=== PATIENT | female | born 1995 ===

== ENCOUNTER 2021-11-08 14:08 | Emergency (ER) | payer SELFPAY ==
[2021-11-08] MEDS ORDERED: ZIPRASIDONE MESYLATE 20 MG VIAL IM ONE (14:56)
[2021-11-08] MEDS ORDERED: LORazepam 2 MG/ML VIAL IM ONE (14:56)
--- NOTE | 2021-11-08 15:43 | Emergency Department Report ---
ED Psych HPI - General Chief Complaint: Psych Stated Complaint: MENTAL health evaluation Time Seen by Provider: 11/08/21 14:28 Source: patient Mode of arrival: Ambulatory Limitations: No Limitations - History of Present Illness Initial Comments: 26-year-old female with a past medical history of major depressive disorder (recently diagnosed) presents to the hospital not speaking, eating, and overly anxious. History obtained from mother who is accompanied patient to the hospital patient was recently medically cleared at [facility] [place] and subsequently transferred to [facility] for psychiatric admission. 2 days ago patient was admitted to [facility]. Yesterday patient threw herself on the floor and was acting hysterical. Today patient is hyperventilating, not eating, and not speaking. She was advised to bring patient back to the ER for treatment. Mother does not know patient's current medications but thinks she was started on Abilify. Covid status unknown and patient was homeless prior to psychiatric admission. - Related Data Allergies Allergy/AdvReac Type Severity Reaction Status Date / Time No Known Allergies Allergy Verified 11/08/21 14:17 ED Review of Systems ROS: Stated complaint: MENTAL health evaluation Other details as noted in HPI Comment: Unobtainable due to pts medical conditions ED Past Medical Hx - Past Medical History Previous Medical History?: Yes Hx Psychiatric Treatment: Yes - Surgical History Past Surgical History?: No ED Physical Exam - General Limitations: No Limitations - Other Other exam information: General: No acute distress Head: Atraumatic Eyes: normal appearance ENT: Moist mucous membranes Neck: Normal appearance, no midline tenderness Chest: Mild tachycardia CV: Regular rate and rhythm Abdomen: Soft, normal bowel sounds, nontender, nondistended, no rebound or guarding Back: Normal inspection Extremity: Normal inspection, full range of motion Neuro: Alert O x 3, no facial asymmetry, speech clear, no gross motor sensory deficit Psych: Appropriate behavior Skin: No rash ED Course Vital Signs 11/08/21 11/08/21 11/08/21 14:17 20:14 20:21 Temperature 98 F 98.2 F Pulse Rate 100 H 79 Respiratory 16 15 Rate Blood Pressure 143/86 131/70 [Left] O2 Sat by Pulse 100 100 100 Oximetry - Reevaluation(s) Reevaluation #1: 11/08/21 17:07 Patient reassessed after receiving IM Ativan and Geodon. She is still not speaking, sitting with her arms crossed, does make eye contact. She is no longer hyperventilating - Consultations Consultation #1: 11/08/21 17:07 Case discussed with Annia mental health provider who will attempt to reach out and go to obtain additional information ED Medical Decision Making - Lab Data Result diagrams: 11/08/21 15:41 11/08/21 15:41 Lab Results 11/08/21 11/08/21 11/08/21 Range/Units 15:41 15:41 15:41 WBC 3.3 L (4.5-11.0) K/mm3 RBC 3.97 (3.65-5.03) M/mm3 Hgb 11.4 (10.1-14.3) gm/dl Hct 35.1 (30.3-42.9) % MCV 89 (79-97) fl MCH 29 (28-32) pg MCHC 32 (30-34) % RDW 13.7 (13.2-15.2) % Plt Count 243 (140-440) K/mm3 Lymph % (Auto) 38.3 H (13.4-35.0) % [place] % (Auto) 11.8 H (0.0-7.3) % Eos % (Auto) 0.1 (0.0-4.3) % Baso % (Auto) 0.7 (0.0-1.8) % Lymph # (Auto) 1.3 (1.2-5.4) K/mm3 [place] # (Auto) 0.4 (0.0-0.8) K/mm3 Eos # (Auto) 0.0 (0.0-0.4) K/mm3 Baso # (Auto) 0.0 (0.0-0.1) K/mm3 Seg Neutrophils % 49.1 (40.0-70.0) % Seg Neutrophils # 1.6 L (1.8-7.7) K/mm3 Sodium 137 (137-145) mmol/L Potassium 4.0 (3.6-5.0) mmol/L Chloride 102.4 (98-107) mmol/L Carbon Dioxide 18 L (22-30) mmol/L Anion Gap 21 mmol/L BUN 7 (7-17) mg/dL Creatinine 0.7 (0.6-1.2) mg/dL Estimated GFR > 60 ml/min BUN/Creatinine Ratio 10 % Glucose 72 (65-100) mg/dL Calcium 8.9 (8.4-10.2) mg/dL Urine Color (Yellow) Urine Turbidity (Clear) Urine pH (5.0-7.0) Ur Specific [place] (1.003-1.030) Urine Protein (Negative) mg/dL Urine Glucose (UA) (Negative) mg/dL Urine Ketones (Negative) mg/dL Urine Blood (Negative) Urine Nitrite (Negative) Urine Bilirubin (Negative) Urine Urobilinogen (<2.0) mg/dL Ur Leukocyte Esterase (Negative) Urine WBC (Auto) (0.0-6.0) /HPF Urine RBC (Auto) (0.0-6.0) /HPF U Epithel Cells (Auto) (0-13.0) /HPF Urine Bacteria (Auto) (Negative) /HPF Urine Mucus /HPF Salicylates < 0.3 L (2.8-20.0) mg/dL Urine Opiates Screen Urine Methadone Screen Acetaminophen (10.0-30.0) ug/mL Ur Barbiturates Screen Ur Phencyclidine Scrn Ur Amphetamines Screen U Benzodiazepines Scrn Urine Cocaine Screen U Marijuana (THC) Screen Drugs of Abuse Note Plasma/Serum Alcohol (0-0.07) % 11/08/21 11/08/21 11/08/21 Range/Units 15:41 15:41 Unknown WBC (4.5-11.0) K/mm3 RBC (3.65-5.03) M/mm3 Hgb (10.1-14.3) gm/dl Hct (30.3-42.9) % MCV (79-97) fl MCH (28-32) pg MCHC (30-34) % RDW (13.2-15.2) % Plt Count (140-440) K/mm3 Lymph % (Auto) (13.4-35.0) % [place] % (Auto) (0.0-7.3) % Eos % (Auto) (0.0-4.3) % Baso % (Auto) (0.0-1.8) % Lymph # (Auto) (1.2-5.4) K/mm3 [place] # (Auto) (0.0-0.8) K/mm3 Eos # (Auto) (0.0-0.4) K/mm3 Baso # (Auto) (0.0-0.1) K/mm3 Seg Neutrophils % (40.0-70.0) % Seg Neutrophils # (1.8-7.7) K/mm3 Sodium (137-145) mmol/L Potassium (3.6-5.0) mmol/L Chloride (98-107) mmol/L Carbon Dioxide (22-30) mmol/L Anion Gap mmol/L BUN (7-17) mg/dL Creatinine (0.6-1.2) mg/dL Estimated GFR ml/min BUN/Creatinine Ratio % Glucose (65-100) mg/dL Calcium (8.4-10.2) mg/dL Urine Color Yellow (Yellow) Urine Turbidity Slightly-cloudy (Clear) Urine pH 5.0 (5.0-7.0) Ur Specific [place] 1.027 (1.003-1.030) Urine Protein 30 mg/dl (Negative) mg/dL Urine Glucose (UA) Neg (Negative) mg/dL Urine Ketones 80 (Negative) mg/dL Urine Blood Neg (Negative) Urine Nitrite Neg (Negative) Urine Bilirubin Neg (Negative) Urine Urobilinogen < 2.0 (<2.0) mg/dL Ur Leukocyte Esterase Sm (Negative) Urine WBC (Auto) 20.0 H (0.0-6.0) /HPF Urine RBC (Auto) 4.0 (0.0-6.0) /HPF U Epithel Cells (Auto) 9.0 (0-13.0) /HPF Urine Bacteria (Auto) 1+ (Negative) /HPF Urine Mucus 1+ /HPF Salicylates (2.8-20.0) mg/dL Urine Opiates Screen Urine Methadone Screen Acetaminophen 5.0 L (10.0-30.0) ug/mL Ur Barbiturates Screen Ur Phencyclidine Scrn Ur Amphetamines Screen U Benzodiazepines Scrn Urine Cocaine Screen U Marijuana (THC) Screen Drugs of Abuse Note Plasma/Serum Alcohol < 0.01 (0-0.07) % 11/08/21 Range/Units Unknown WBC (4.5-11.0) K/mm3 RBC (3.65-5.03) M/mm3 Hgb (10.1-14.3) gm/dl Hct (30.3-42.9) % MCV (79-97) fl MCH (28-32) pg MCHC (30-34) % RDW (13.2-15.2) % Plt Count (140-440) K/mm3 Lymph % (Auto) (13.4-35.0) % [place] % (Auto) (0.0-7.3) % Eos % (Auto) (0.0-4.3) % Baso % (Auto) (0.0-1.8) % Lymph # (Auto) (1.2-5.4) K/mm3 [place] # (Auto) (0.0-0.8) K/mm3 Eos # (Auto) (0.0-0.4) K/mm3 Baso # (Auto) (0.0-0.1) K/mm3 Seg Neutrophils % (40.0-70.0) % Seg Neutrophils # (1.8-7.7) K/mm3 Sodium (137-145) mmol/L Potassium (3.6-5.0) mmol/L Chloride (98-107) mmol/L Carbon Dioxide (22-30) mmol/L Anion Gap mmol/L BUN (7-17) mg/dL Creatinine (0.6-1.2) mg/dL Estimated GFR ml/min BUN/Creatinine Ratio % Glucose (65-100) mg/dL Calcium (8.4-10.2) mg/dL Urine Color (Yellow) Urine Turbidity (Clear) Urine pH (5.0-7.0) Ur Specific [place] (1.003-1.030) Urine Protein (Negative) mg/dL Urine Glucose (UA) (Negative) mg/dL Urine Ketones (Negative) mg/dL Urine Blood (Negative) Urine Nitrite (Negative) Urine Bilirubin (Negative) Urine Urobilinogen (<2.0) mg/dL Ur Leukocyte Esterase (Negative) Urine WBC (Auto) (0.0-6.0) /HPF Urine RBC (Auto) (0.0-6.0) /HPF U Epithel Cells (Auto) (0-13.0) /HPF Urine Bacteria (Auto) (Negative) /HPF Urine Mucus /HPF Salicylates (2.8-20.0) mg/dL Urine Opiates Screen Negative Urine Methadone Screen Negative Acetaminophen (10.0-30.0) ug/mL Ur Barbiturates Screen Negative Ur Phencyclidine Scrn Negative Ur Amphetamines Screen Negative U Benzodiazepines Scrn Negative Urine Cocaine Screen Negative U Marijuana (THC) Screen Negative Drugs of Abuse Note Disclamer Plasma/Serum Alcohol (0-0.07) % - Medical Decision Making 26-year-old female presents to the hospital not speaking, eating, and appears overly anxious. Medicated with Geodon and Ativan and seemed to calm down and speaking intermittently. Patient is a 1013. Symptoms started apparently after experiencing relationship and family trauma. Patient is medically cleared for psychiatric admission and currently pending placement. She was started on Macrobid for UTI Critical Care Time: No Critical care attestation.: If time is entered above; I have spent that time in minutes in the direct care of this critically ill patient, excluding procedure time. ED Disposition Clinical Impression: Medical clearance for psychiatric admission, Catatonia, UTI (urinary tract infection) Disposition: [address] [place] [address] Is pt being admited?: No Condition: Stable Time of Disposition: 20:39
[2021-11-08 16:12] LABS: Basophils % (Auto) 0.7 % (0.0-1.8); Eosinophils % (Auto) 0.1 % (0.0-4.3); Hematocrit 35.1 % (30.3-42.9); Hemoglobin 11.4 gm/dl (10.1-14.3); Lymphocytes # (Auto) 1.3 K/mm3 (1.2-5.4); Lymphocytes % (Auto) 38.3 % (13.4-35.0); Mean Corpuscular HGB Conc 32 % (30-34); Mean Corpuscular Volume 89 fl (79-97); Monocytes # (Auto) 0.4 K/mm3 (0.0-0.8); Monocytes % (Auto) 11.8 % (0.0-7.3); Platelet Count 243 K/mm3 (140-440); Red Blood Count 3.97 M/mm3 (3.65-5.03); Red Cell Distribution Width 13.7 % (13.2-15.2)
[2021-11-08 16:19] LABS: Blood Urea Nitrogen 7 mg/dL (7-17); Calcium 8.9 mg/dL (8.4-10.2); Hemolysis Index 13
[2021-11-08 16:21] LABS: BUN/Creatinine Ratio 10
[2021-11-08 18:20] LABS: Bacteria,Urine 1+ /HPF (Negative); Bilirubin,Urine NEG (Negative); Blood,Urine NEG (Negative); Color,Urine Yellow (Yellow); Mucus,Urine 1+ /HPF; Urobilinogen,Urine < 2.0 mg/dL (<2.0)
[2021-11-08 18:24] LABS: Amphetamine Screen,Urine Negative; Benzodiazepines Screen,Urine Negative; Cannabinoid Screen,Urine Negative; Cocaine Screen,Urine Negative; Methadone Screen,Urine Negative; Opiate Screen,Urine Negative
[2021-11-08] MEDS: NITROFURANTOIN MONOHYD/M-CRYST 100 MG CAP PO SCH (21:55)
[2021-11-09] MEDS ORDERED: LORazepam 2 MG/ML VIAL IM STA (09:02)
--- NOTE | 2021-11-09 09:03 | Event Note ---
I was asked by charge nurse to evaluate patient. She pointed to her backside when asked if uncomfortable. Patient is wandering around the halls but appears she will make eye contact. She only answers limited questions. She is not appear to be in distress. I have ordered IM lorazepam for chemical restraint.
--- NOTE | 2021-11-09 10:09 | Consultation ---
History of Present Illness - Reason for Consult Consult date: 11/09/21 Reason for consult: psychosis - History of Present Psychiatric Illness The patient was seen today. Her face is tense. She appears very anxious. Her movement is catatonic. She is barely walking, not speaking and slow to respond when she does. She is crying and can't express herself. I could not engage the patient in the evaluation. REVIEW OF SYSTEMS Unable to assess MENTAL STATUS EXAMINATION Unable to assess Assessment (1) Psychosis Treatment Plan 1013 Lorazepam 0.5mg po BID x 3 days Remeron 7.5mg po qhs Disposition: Recommend acute psychiatric inpatient treatment Will follow. Thanks Case staffed with Dr. Marcano Medications and Allergies Allergies Allergy/AdvReac Type Severity Reaction Status Date / Time No Known Allergies Allergy Verified 11/08/21 14:17 Active Meds: Active Medications Nitrofurantoin Macrocrystals (Nitrofurantoin Monohyd/M-Cryst 100 Mg Cap) 100 mg PO BID LATANYA Stop: 11/13/21 10:01 Last Admin: 11/08/21 21:55 Dose: 100 mg Documented by: Mental Status Exam - Vital signs Last Vital Signs Temp 98.2 F 11/08/21 20:14 Pulse 88 11/09/21 07:00 Resp 18 11/09/21 07:00 BP 109/68 11/09/21 07:00 Pulse Ox 100 11/09/21 07:00 Results Result Diagrams: 11/08/21 15:41 11/08/21 15:41 Abnormal lab results 11/08/21 11/08/21 11/08/21 Range/Units 15:41 15:41 15:41 WBC 3.3 L (4.5-11.0) K/mm3 Lymph % (Auto) 38.3 H (13.4-35.0) % [place] % (Auto) 11.8 H (0.0-7.3) % Seg Neutrophils # 1.6 L (1.8-7.7) K/mm3 Carbon Dioxide 18 L (22-30) mmol/L Urine WBC (Auto) (0.0-6.0) /HPF Salicylates < 0.3 L (2.8-20.0) mg/dL Acetaminophen (10.0-30.0) ug/mL 01/01/22 01/01/22 Range/Units 15:41 Unknown WBC (4.5-11.0) K/mm3 Lymph % (Auto) (13.4-35.0) % [place] % (Auto) (0.0-7.3) % Seg Neutrophils # (1.8-7.7) K/mm3 Carbon Dioxide (22-30) mmol/L Urine WBC (Auto) 20.0 H (0.0-6.0) /HPF Salicylates (2.8-20.0) mg/dL Acetaminophen 5.0 L (10.0-30.0) ug/mL All other labs normal.
[2021-11-09] MEDS ORDERED: ZIPRASIDONE MESYLATE 20 MG VIAL IM ONE (10:46)
[2021-11-09] MEDS: NITROFURANTOIN MONOHYD/M-CRYST 100 MG CAP PO SCH ×2 (11:00→22:15)
--- NOTE | 2021-11-09 11:21 | Emergency Department Report ---
Blank Doc - Documentation Documentation: Patient is 26 years old female admitted to the ER for major depressive disorder with psychotic episode. Patient still refusing to talk. Vital signs stable. Labs reviewed and showed UTI for which patient received Macrobid. Waiting for inpatient psychiatric admission.
[2021-11-09] MEDS: LORazepam 0.5 MG TAB PO SCH (22:14)
[2021-11-09] MEDS: MIRTAZAPINE 15 MG TAB PO SCH (22:15)
[2021-11-10] MEDS ORDERED: IBUPROFEN 600 MG TAB PO ONE (09:45)
[2021-11-10] MEDS: NITROFURANTOIN MONOHYD/M-CRYST 100 MG CAP PO SCH ×2 (09:55→22:00)
[2021-11-10] MEDS: LORazepam 0.5 MG TAB PO SCH ×2 (09:55→22:00)
--- NOTE | 2021-11-10 10:19 | XRay Report ---
XR pelvis 1-2V INDICATION: left hip pain after fall. COMPARISON: No relevant prior imaging study available. FINDINGS: No acute skeletal abnormality. No significant soft tissue abnormality. IMPRESSION: 1. No acute findings. Signer Name: Mariano Wyatt MD Signed: 11/10/2021 10:15 AM Workstation Name: [id number] Document [id number]
--- NOTE | 2021-11-10 11:10 | Progress Note ---
Subjective - Reason for Consult Consult date: 11/10/21 Reason for consult: psychosis, catatonia - Chief Complaint Chief complaint: The patient is not speaking. She is moving her mouth as if she's trying to talk but nothing is coming out. She appears to be responding to internal stimuli. She starting at me with her face tense. REVIEW OF SYSTEMS Unable to assess MENTAL STATUS EXAMINATION Unable to assess Assessment (1) Psychosis Treatment Plan 1013 Lorazepam 0.5mg po BID x 3 days Remeron 7.5mg po qhs Start Haldol 0.5mg po BID Disposition: Recommend acute psychiatric inpatient treatment Will follow. Thanks Case staffed with Dr. Marcano Mental Status Exam - Vital signs Last Vital Signs Temp 98.2 F 11/10/21 07:52 Pulse 83 11/10/21 07:52 Resp 18 11/10/21 07:52 BP 122/78 11/10/21 07:52 Pulse Ox 99 11/10/21 07:52
--- NOTE | 2021-11-10 11:32 | Emergency Department Report ---
Blank Doc - Documentation Documentation: 26-year-old currently on 1013 for disorganized thought and catatonia. Patient apparently complaining of left hip pain earlier today. There are no reports of fall during ED stay. Pt had a pelvis x-ray which was unremarkable. Patient currently Macrobid for UTI. Upon chart review patient did not have a test. HCG serum ordered to confirm status. Pt is covid postitive. Tolerating oral meds. awaiting placement
[2021-11-10] MEDS: HALOPERIDOL 1 MG TAB PO SCH ×2 (12:00→22:00)
[2021-11-10] MEDS: MIRTAZAPINE 15 MG TAB PO SCH (22:00)
[2021-11-11] MEDS: HALOPERIDOL 1 MG TAB PO SCH (10:00)
[2021-11-11] MEDS: LORazepam 0.5 MG TAB PO SCH (10:00)
[2021-11-11] MEDS: NITROFURANTOIN MONOHYD/M-CRYST 100 MG CAP PO SCH ×2 (10:00→21:48)
--- NOTE | 2021-11-11 11:34 | Emergency Department Report ---
Blank Doc - Documentation Documentation: Patient is still not at baseline. She is fixated on water. She will interact to some extent. She is walking about the room. We are still waiting psychiatric admission. We will continue to await psychiatric disposition.
--- NOTE | 2021-11-11 12:40 | Progress Note ---
Subjective - Reason for Consult Consult date: 11/11/21 Reason for consult: psychosis - Chief Complaint Chief complaint: The patient was seen today. She is still suffering from acute psychosis. She is paranoid, and refusing to drink a cup of water that is given to her. She is pointing at the ice in the water and staring at it suspiciously. She is whispering and is incomprehensible. REVIEW OF SYSTEMS Unable to assess MENTAL STATUS EXAMINATION Unable to assess Assessment (1) Psychosis Treatment Plan 1013 Increase Lorazepam 1mg po BID x 3 days Remeron 7.5mg po qhs Increase Haldol 1mg po BID Disposition: Recommend acute psychiatric inpatient treatment Will follow. Thanks Case staffed with Dr. Marcano Mental Status Exam - Vital signs Last Vital Signs Temp 98.2 F 11/11/21 04:02 Pulse 68 11/11/21 04:02 Resp 16 11/11/21 04:02 BP 95/57 11/11/21 04:02 Pulse Ox 100 11/11/21 04:02
[2021-11-11] MEDS: LORazepam 1 MG TAB PO SCH (21:48)
[2021-11-11] MEDS: MIRTAZAPINE 15 MG TAB PO SCH (21:49)
[2021-11-11] MEDS ORDERED: HALOPERIDOL 1 MG TAB PO SCH (22:00)
--- NOTE | 2021-11-12 10:32 | Progress Note ---
Subjective - Reason for Consult Consult date: 11/12/21 Reason for consult: psychosis - Chief Complaint Chief complaint: The patient was seen today. She is positive for COVID. She is is whispering and is incomprehensible. She says "I can't talk" when asking her why she was talking so low. REVIEW OF SYSTEMS Unable to assess MENTAL STATUS EXAMINATION Unable to assess Assessment (1) Psychosis Treatment Plan 1013 Lorazepam 1mg po BID x 3 days Increase Remeron 15mg po qhs Increase Haldol 2mg po BID Disposition: Recommend acute psychiatric inpatient treatment Will follow. Thanks Case staffed with Dr. Marcano Mental Status Exam - Vital signs Last Vital Signs Temp 97.5 F L 11/12/21 01:51 Pulse 76 11/12/21 01:51 Resp 16 11/12/21 01:51 BP 107/72 11/12/21 01:51 Pulse Ox 100 11/12/21 01:51
[2021-11-12] MEDS: LORazepam 1 MG TAB PO SCH (10:51)
[2021-11-12] MEDS: NITROFURANTOIN MONOHYD/M-CRYST 100 MG CAP PO SCH (10:51)
[2021-11-12] MEDS ORDERED: HALOPERIDOL 2 MG TAB PO SCH (22:00)
--- NOTE | 2021-11-13 09:46 | Progress Note ---
Subjective - Reason for Consult Consult date: 11/13/21 Reason for consult: psychosis - Chief Complaint Chief complaint: The patient was seen today. She is still whispering and staring. She is an inaudible tone most of the time. She says "I'm doing okay." That is all I could make out. She then starts staring at me strangely. REVIEW OF SYSTEMS Unable to assess MENTAL STATUS EXAMINATION Unable to assess Assessment (1) Psychosis Treatment Plan 1013 Lorazepam 1mg po BID x 3 days Remeron 15mg po qhs Increase Haldol 5mg po BID Disposition: Recommend acute psychiatric inpatient treatment Will follow. Thanks Case staffed with Dr. Marcano Mental Status Exam - Vital signs Last Vital Signs Temp 98.6 F 11/12/21 20:17 Pulse 98 H 11/12/21 20:17 Resp 18 11/12/21 20:17 BP 112/72 11/12/21 20:17 Pulse Ox 99 11/12/21 20:17
--- NOTE | 2021-11-13 11:01 | Emergency Department Report ---
Blank Doc - Documentation Documentation: Patient is resting this morning. There is no new complaint or issue that has developed to the night. We are still awaiting psychiatric placement.
[2021-11-13] MEDS ORDERED: NITROFURANTOIN MONOHYD/M-CRYST 100 MG CAP ONE (13:03)
[2021-11-13] MEDS: HALOPERIDOL 5 MG TAB PO SCH ×2 (13:17→21:47)
[2021-11-13] MEDS: LORazepam 1 MG TAB PO SCH ×2 (13:17→21:46)
[2021-11-13] MEDS: NITROFURANTOIN MONOHYD/M-CRYST 100 MG CAP PO SCH (13:17)
[2021-11-13] MEDS: traZODone 50 MG TAB PO SCH (21:46)
[2021-11-13] MEDS: MIRTAZAPINE 15 MG TAB PO SCH (21:47)
[2021-11-14] MEDS: LORazepam 1 MG TAB PO SCH (11:04)
[2021-11-14] MEDS: HALOPERIDOL 5 MG TAB PO SCH (11:05)
--- NOTE | 2021-11-14 11:19 | Progress Note ---
Subjective - Reason for Consult Consult date: 11/14/21 Reason for consult: psychosis - Chief Complaint Chief complaint: The patient was seen today. She presents with low tone of voice. she reports doing well, states sleep and appetite as good. The patient denies any current suicidal/homicidal ideation and denies hallucinations. REVIEW OF SYSTEMS Unable to assess MENTAL STATUS EXAMINATION Unable to assess Assessment (1) Psychosis Treatment Plan 1013 Remeron 15mg po qhs Continue Haldol 5mg po BID Disposition: Recommend acute psychiatric inpatient treatment Will follow. Thanks Case staffed with Dr. Marcano Mental Status Exam - Vital signs Last Vital Signs Temp 98.4 F 11/13/21 23:50 Pulse 75 11/13/21 23:50 Resp 18 11/13/21 23:50 BP 100/54 11/13/21 23:50 Pulse Ox 97 11/14/21 04:51
--- NOTE | 2021-11-14 12:17 | Event Note ---
Date: 11/14/21 26-year-old female here with acute psychosis. Currently being treated for UTI. Also found to be Covid positive. She was seen by my colleague and was medically cleared for psychiatric evaluation and placement. Vital signs reviewed and are stable. There were no acute events overnight. Currently awaiting inpatient psychiatric facility placement.
[2021-11-15] MEDS: LORazepam 1 MG TAB PO SCH ×3 (10:02→12:18)
[2021-11-15] MEDS: MIRTAZAPINE 15 MG TAB PO SCH (10:22)
[2021-11-15] MEDS: HALOPERIDOL 5 MG TAB PO SCH ×2 (10:22→12:19)
[2021-11-15] MEDS: traZODone 50 MG TAB PO SCH (10:22)
--- NOTE | 2021-11-15 11:09 | Progress Note ---
Subjective - Reason for Consult Consult date: 11/15/21 Reason for consult: psychosis - Chief Complaint Chief complaint: The patient was seen today. she reports doing well, states sleep and appetite as good. The patient denies any current suicidal/homicidal ideation and denies hallucinations. REVIEW OF SYSTEMS Constitutional: Negative for weight loss ENT: Negative for stridor Respiratory: Negative for cough or hemoptysis All other systems reviewed and are negative MENTAL STATUS EXAMINATION General Appearance and Behavior: Age appropriate, good hygiene, wearing appropriate clothes. calm, cooperative Cooperation: Cooperative Psychomotor Behavior: Psychomotor normal Mood: "ok" Affect and affective range: congruent with stated mood Thought Process: Goal directed Thought Content: Reality oriented Speech: normal tone and pace Suicidal Ideation: Denies Homicidal Ideation: Denies Hallucinations: Denies Delusions: None elicited Impulse Control: Limited Insight and Judgment: Limited insight and good judgment Memory: Limited Attention: distracted Orientation: a/x o 3 Assessment (1) Psychosis Treatment Plan DC 1013 Continue Remeron 15mg po qhs Continue Haldol 5mg po BID Disposition: Do not recommend acute psychiatric inpatient treatment. The dietary services director will provide patient with psychiatric outpatient resources. The patient understands that if suicidal ideas, homicidal ideas or any endangering thoughts/behaviors arise, she should immediately seek for emergent assistance including but not limited to crisis hotline and emergency room. The patient should will follow up with out patient psychiatrist and PCP within 7- 14 days of discharge. Will sign off. Thanks Case staffed with Dr. Marcano Mental Status Exam - Vital signs Last Vital Signs Temp 98.4 F 11/15/21 08:32 Pulse 66 11/15/21 08:32 Resp 18 11/15/21 08:32 BP 120/70 11/15/21 08:32 Pulse Ox 100 11/15/21 08:32
--- NOTE | 2021-11-15 11:37 | Event Note ---
Date: 11/15/21 26-year-old female here for acute psychosis. Found to be Covid positive and with UTI which is treated. She was seen by my colleague and was medically cleared for psychiatric evaluation and placement. Vital signs reviewed and are stable. There were no acute events overnight. She was seen by the mental health/psychiatry team today who recommended discharge home with outpatient follow-up.
[2021-11-16 02:58] VITALS: BP 109/54
== END 2021-11-16 12:00 | disposition home or self-care (01) ==
LOC: ED 14:08
DX: F20.2 Catatonic schizophrenia (principal); N39.0 Urinary tract infection, site not specified; F29 Unspecified psychosis not due to a substance or known physiological condition; Z20.822 Contact with and (suspected) exposure to COVID-19
CPT/HCPCS: 36415; 72170; 80048; 80307; 81001; 84703; 85025; 87086; 96372; 99284; J2060; J3486; U0003; 80320; G0480